=== PATIENT | female | born 1945 | race Two or more races ===

== ENCOUNTER 2020-11-21 15:42 | Emergency (ER) | payer OTHER ==
[~2020-11-21] VITALS: Ht 165.1 cm; Wt 70.3 kg
[2020-11-21] MEDS ORDERED: ALTACE5 MG (15:55)
[2020-11-21] MEDS ORDERED: AZOR 10-20 MG1 EACH (15:56)
[2020-11-21] MEDS ORDERED: DRAMAMINE LESS25 MG PO (18:38)
[2020-11-21] MEDS ORDERED: ZOFRAN8 MG PO (18:38)
== END 2020-11-21 19:07 | disposition home or self-care (01) ==
LOC: ER 15:42
DX: R42 Dizziness and giddiness (principal); R11.0 Nausea